=== PATIENT | female | born 1995 | race Caucasian/White ===

== ENCOUNTER → 2016-08-09 | Outpatient (CLI) | payer OTHER ==
--- NOTE | 2016-08-09 08:17 | US ---
EXAMINATION TYPE: US transvaginal DATE OF EXAM: 08/09/2016 COMPARISON: NONE CLINICAL HISTORY: N93.8 Dysfunctional uterine bleeding. Pt states irregular menses, pt being worked u p for PCOS TECHNIQUE: Transvaginal (TV) Date of LMP: 2 weeks ago EXAM MEASUREMENTS: Uterus: 6.2 x 2.8 x 3.8 cm Endometrial Stripe: Right= 0.6 cm, Left= 0.6 cm Right Ovary: 4.2 x 3.2 x 2.8 cm Left Ovary: 3.9 x 4.2 x 2.1 cm 1. Uterus: Anteverted wnl 2. Endometrium: Possible right and left horns, Right= 0.6 cm, Left= 0.6 cm 3. Right Ovary: Multiple "String of Pearls" peripheral follicles suggesting PCOS 4. Left Ovary: Multiple "String of Pearls" peripheral follicles suggesting PCOS 5. Bilateral Adnexa: wnl 6. Posterior cul-de-sac: Small amount of free fluid IMPRESSION: 1. Multiple ovarian cysts seen bilaterally suggesting polycystic ovary disease. Correlate clinically.
== END | disposition home or self-care (01) ==
LOC: RADUSWWP 07:15
PROVIDERS: ATTEND Family Medicine
DX: N83.202 Unspecified ovarian cyst, left side (principal); N83.201 Unspecified ovarian cyst, right side
CPT/HCPCS: 76830

== ENCOUNTER → 2017-04-30 | Outpatient (CLI) | payer BC ==
--- NOTE | 2017-04-30 11:07 | US ---
EXAMINATION TYPE: US thyroid st tissue head/neck DATE OF EXAM: 04/30/2017 COMPARISON: NONE CLINICAL HISTORY: 21-year-old female E01.0 Thyromegaly. Patient states that she occasionally feels li ke she is choking on something. Physician felt thyroid was enlarged. Family history of thyroid CA TECHNIQUE: Multiple sonographic images of the thyroid gland are obtained. FINDINGS: GLAND SIZE: Right Lobe: 4.7 x 1.3 x 1.5 cm Left Lobe: 4.4 x 1.1 x 1.7 cm Isthmus Thickness: 0.3 cm The glandular parenchyma is very mildly heterogeneous. No discrete nodules. Bilateral neck scanned, no evidence of lymphadenopathy. IMPRESSION: The thyroid gland measures at the upper limits of normal in size. Measurements as above. No discrete nodule.
== END | disposition home or self-care (01) ==
LOC: RADUSWWP 10:16
PROVIDERS: ATTEND Family Medicine
DX: E01.0 Iodine-deficiency related diffuse (endemic) goiter (principal)
CPT/HCPCS: 76536

== ENCOUNTER 2017-07-23 05:57 | Inpatient (IN) | payer OTHER, BC ==
[2017-07-23] MEDS ORDERED: OXYTOCIN 10 UNIT/ML 1 ML VIAL IM PRN (06:13)
[2017-07-23] MEDS ORDERED: CARBOPROST TROMETHAMINE 250 MCG/ML 1 ML AMP IM PRN (06:13)
[2017-07-23] MEDS ORDERED: TERBUTALINE 1 MG/ML VIAL SQ PRN (06:13)
[2017-07-23] MEDS ORDERED: LIDOCAINE 1% (PF) 10 MG/ML (30 ML SDV) SQ PRN (06:13)
[2017-07-23] MEDS ORDERED: METHYLERGONOVINE 0.2 MG/ML 1 ML AMP IM PRN (06:13)
[2017-07-23 06:23] LABS: Basophils % (A) 0 %; Eosinophils # (A) 0.3 k/uL (0-0.7); Eosinophils % (A) 3 %; HCT 39.7 % (34.0-46.0); HGB 13.3 gm/dL (11.4-16.0); Lymphocytes # (A) 2.3 k/uL (1.0-4.8); Lymphocytes % (A) 19 %; MCH 28.9 pg (25.0-35.0); MCHC 33.6 g/dL (31.0-37.0); MCV 86.2 fL (80.0-100.0); Mean Platelet Volume 8.5; Monocytes # (A) 0.6 k/uL (0-1.0); Monocytes % (A) 5 %; Neutrophils # (A) 8.9 k/uL (1.3-7.7); Neutrophils % (A) 72 %; Platelet Count 217 k/uL (150-450); RBC 4.61 m/uL (3.80-5.40); RDW 13.1 % (11.5-15.5); WBC 12.3 k/uL (3.8-10.6)
[2017-07-23] MEDS: LACTATED RINGERS 1,000 ML IV SCH ×3 (06:39→22:50)
[2017-07-23] MEDS: OXYTOCIN 20 UNITS/1000 ML NS 1,000 ML IV SCH ×2 (06:39→21:44)
[2017-07-23 07:24] VITALS: BMI 42.1
[2017-07-23 08:09] LABS: ALT 21 U/L (9-52); AST 22 U/L (14-36); Blood Urea Nitrogen 6 mg/dL (7-17); LDH 531 U/L (313-618); Uric Acid 5.5 mg/dL (3.7-7.4)
--- NOTE | 2017-07-23 09:28 | P.HPOB ---
History of Present Illness H&P Date: 07/23/17 This is a 21 -year-old white female 1 para 0 EDC 07/29/2017 at 39 and one sevenths weeks' gestation. Patient presents today for induction with reasonably favorable cervix and mild -induced hypertension. Blood pressure was noted to be slightly elevated in the office yesterday, patient denies headache, visual changes or right upper quadrant pain. Fetus is been active throughout the . She is having mild irregular uterine contractions. Obstetric history is significant for blood type B positive, rubella status immune. Gonorrhea and chlamydia cultures, hepatitis B surface antigen, urine culture, HIV testing, VDRL testing, group B strep cultures all negative. One- hour Glucola 107. Past medical history is significant for polycystic ovarian syndrome. Past surgical history is negative. Current medications metformin 500 mg twice daily and vitamin daily. ALLERGIES none known. Family history significant for thyroid cancer and diabetes. Social history patient is , she has never been a smoker, she denies alcohol or drug use. On exam this is a pleasant white female, she is 5 foot 6 inches 261 pounds, blood pressure on admission 145/87, pulse 106, patient is afebrile. The general physical exam is within normal limits. The extremities reveal trace to +1 edema. The chest is clear in all [place]. Reflexes are normal at +2 bilaterally lower extremities. heart rate is consistent with reactive NST. Cervix is 2 cm dilated, 70% effaced, -2 station, anterior and soft. Artificial amniorrhexis reveals clear fluid. Impression: 39 and one sevenths weeks intrauterine , here for induction for -induced hypertension. Plan: PIH labs will be drawn. Oxytocin per hospital protocol. Close maternal and surveillance. Analgesic options reviewed with the patient. Anticipate normal spontaneous vaginal delivery. Review of Systems Constitutional: Reports as per HPI Past Medical History Past Medical History: No Reported History Additional Past Medical History / Comment(s): Polycystic Ovarian Syndrome History of Any Multi-Drug Resistant Organisms: None Reported Past Surgical History: No Surgical Hx Reported Past Anesthesia/Blood Transfusion Reactions: No Reported Reaction Past Psychological History: No Psychological Hx Reported Smoking Status: Never smoker Past Alcohol Use History: None Reported Past Drug Use History: None Reported - Past Family History Sister(s) Family Medical History: Cancer Medications and Allergies Home Medications Medication Instructions Recorded Confirmed Type metFORMIN HCL [Glucophage] 500 mg PO BID 07/23/17 07/23/17 History Allergies Allergy/AdvReac Type Severity Reaction Status Date / Time No Known Allergies Allergy Verified 07/23/17 06:11 Exam - Vital Signs Vital signs: Vital Signs Temp Pulse Resp BP Pulse Ox 07/23/17 06:06 96.7 F L 106 H 16 145/87 97 Intake and Output 07/22/17 07/23/17 07/23/17 22:59 06:59 14:59 Other: Weight 118.388 kg See dictation under HPI please Results Result Diagrams: 07/23/17 06:15 07/23/17 07:32 Abnormal Lab Results - Last 24 Hours (Table) 07/23/17 07/23/17 Range/Units 06:15 07:32 WBC 12.3 H (3.8-10.6) k/uL Neutrophils # 8.9 H (1.3-7.7) k/uL BUN 6 L (7-17) mg/dL Assessment and Plan Plan: Close maternal and surveillance. Oxytocin per hospital protocol. Anticipate normal spontaneous vaginal delivery. Time with Patient: Less than 30
[2017-07-23] MEDS ORDERED: BUPIVACAINE (PF) 0.25% 30 ML VIAL ONE (11:29)
[2017-07-23] MEDS ORDERED: fentaNYL (PF) 50 MCG/ML 5 ML AMP ONE (11:29)
[2017-07-23] MEDS ORDERED: SODIUM CHLORIDE 0.9% 100 ML BAG ONE (11:29)
[2017-07-23] MEDS ORDERED: ZOLPIDEM 5 MG TAB PO PRN (21:32)
[2017-07-23] MEDS ORDERED: HYDROcodone/APAP 5-325MG 1 EACH TAB PO PRN (21:32)
[2017-07-23] MEDS ORDERED: LANOLIN CREAM 5 GM TUBE TOPICAL PRN (21:32)
[2017-07-23] MEDS ORDERED: HYDROCORTISONE 2.5% RECTAL CREAM 30 GM TUBE RECTAL PRN (21:32)
[2017-07-23] MEDS ORDERED: BENZOCAINE/MENTHOL SPRAY 1 GM/SPRAY AEROSOL TOPICAL PRN (21:32)
[2017-07-23] MEDS ORDERED: diphenhydrAMINE 50 MG CAP PO PRN (21:32)
[2017-07-23] MEDS ORDERED: diphenhydrAMINE 25 MG CAP PO PRN (21:32)
[2017-07-23] MEDS ORDERED: diphenhydrAMINE 50 MG/ML 1 ML VIAL IVP PRN ×2 (21:32)
[2017-07-23] MEDS ORDERED: ACETAMINOPHEN TAB 325 MG TAB PO PRN (21:32)
[2017-07-23] MEDS ORDERED: SIMETHICONE 80 MG CHEWABLE PO PRN (21:32)
[2017-07-23] MEDS ORDERED: WITCH HAZEL 1 EACH MED..PAD TOPICAL PRN (21:32)
--- NOTE | 2017-07-23 21:32 | P.PROBDLV ---
Vaginal Delivery Note - . Vaginal Delivery Note: This is a 21-year-old white female 1 para 0 EDC 07/29/2017 at 39 and one sevenths weeks' gestation. Patient presents for induction for mild -induced hypertension. Blood pressure on admission 145/87, all PIH labs performed and within normal limits. Blood type is B+, rubella status immune, group B strep cultures negative. Please see dictated history and physical for details. Oxytocin was started and titrated per hospital protocol. Epidural was placed per her request. She progressed well through the first stage of labor was judged to be completely dilated at 1949 hrs. She began the second stage of labor at that time. She pushed successfully in the dorsal lithotomy position. Ultimately the perineal body was prepped and draped in usual sterile fashion. A small midline episiotomy was performed, patient had a very tight introitus and along perineal body. This was done under 1% lidocaine. 's head delivered occiput anterior and restituted accordingly. There was a nuchal cord 2 that was reduced on the perineum. The left or anterior shoulder was gently delivered from underneath the pubic symphysis at which time the oropharynx, nasopharynx and external nares were all bulb suctioned on the perineal body. Patient was officially delivered of a liveborn female at 2057 hours. Umbilical cord was doubly clamped and ligated, she was handed to waiting nurses for evaluation where scores of 9 and 9 at one and 5 minutes respectively are given. Placenta delivered spontaneously, it was inspected and noted to be intact with trivascular cord at 2100 hrs. Inspection of the cervix, vagina, perineum, periurethral and perirectal areas revealed no extension. 3-0 Vicryl sutures used to repair the midline second- degree episiotomy. Excellent reapproximation was noted. Fundus is firm and in the midline, symmetric and 18 week size upon completion of delivery. weighed 3460 g or 7 lbs. 10 oz. Patient and her family are allowed to begin the bonding experience in the LDR. BP after delivery 130/70.
[2017-07-23] MEDS: IBUPROFEN 600 MG TAB PO PRN (21:50)
[2017-07-24] MEDS: IBUPROFEN 600 MG TAB PO PRN ×2 (04:14→11:24)
--- NOTE | 2017-07-24 07:37 | P.DS ---
Providers Date of admission: 07/23/17 05:57 Expected date of discharge: 07/24/17 Attending physician: Beata Benson Primary care physician: Claritza Abraham MD Hospital Course: This is a 21-year-old white female 1 para 0 EDC 07/29/2017 at 39 and one sevenths weeks' gestation. Patient presented for induction for mild -induced hypertension, otherwise unremarkable. Blood pressure on admission 145/87, PIH labs all performed and within normal limits, please see my dictated history and physical for details. Oxytocin was started, patient progressed well through labor with the aid of an epidural. She went on to deliver a liveborn female with scores of 9 and 9 at one and 5 minutes respectively. There was a small midline episiotomy performed and easily repaired. Infant weighed 7 lbs. 10 oz. or 3460 g. Estimated blood loss recorded of 300 mL's. Please see my dictated delivery note for details. Blood pressure has normalized after delivery, now 120s to 130s over 70s. Patient is voiding, ambulating, passing flatus without difficulty. Vital signs are stable and she is afebrile. Breasts are not engorged, breast-feeding is going well. is doing well. Patient's fundus is firm, midline, symmetric, 18 week size. Pain is well-controlled. Patient is being discharged home in very good condition. She will follow-up in the office with me in 6 weeks. I have reminded her no intercourse, tampons or douching. She will use [id number] ibuprofen products as needed for pain, 200 mg pills, 3 every 6 hours as needed. She will continue taking her vitamin daily. She will call me with any pain not alleviated by over-the- counter products, with any issues with her breasts or perineal body, with any problems or defecation or urination, or indeed with any concerns or questions. Infant will follow-up with ladies attendant as recommended. Patient Condition at Discharge: Good Plan - Discharge Summary New Discharge Prescriptions: No Action metFORMIN HCL [Glucophage] 500 mg PO BID Discharge Medication List metFORMIN HCL [Glucophage] 500 mg PO BID 07/23/17 [History] Follow up Appointment(s)/Referral(s): Beata Benson MD [STAFF PHYSICIAN] - 6 Weeks Discharge Disposition: HOME SELF-CARE
[2017-07-24 16:10] VITALS: RESP 16
[2017-07-24] MEDS: SENNOSIDES-DOCUSATE SODIUM 1 EACH TAB PO SCH ×2 (17:11→22:42)
[2017-07-24 22:45] VITALS: BP 145/74; PULSE 100; TEMP 99
== END 2017-07-24 21:40 | disposition home or self-care (01) | DRG 775 ==
LOC: 4FBP 05:57
PROVIDERS: ADMIT Obstetrics & Gynecology; ATTEND Obstetrics & Gynecology
PROC: 10E0XZZ Delivery of Products of Conception, External Approach (ICD-10-PCS; principal; 2017-07-23)
PROC: 10907ZC Drainage of Amniotic Fluid, Therapeutic from Products of Conception, Via Natural or Artificial Opening (ICD-10-PCS; principal; 2017-07-23)
PROC: 0W8NXZZ Division of Female Perineum, External Approach (ICD-10-PCS; principal; 2017-07-23)
DX: O13.4 Gestational [pregnancy-induced] hypertension without significant proteinuria, complicating childbirth (principal); Z37.0 Single live birth; O69.81X0 Labor and delivery complicated by cord around neck, without compression, not applicable or unspecified; E28.2 Polycystic ovarian syndrome; O75.89 Other specified complications of labor and delivery; Z3A.39 39 weeks gestation of pregnancy; Z79.84 Long term (current) use of oral hypoglycemic drugs; Z83.3 Family history of diabetes mellitus; Z80.8 Family history of malignant neoplasm of other organs or systems
CPT/HCPCS: 82565; 83615; 84450; 84460; 84520; 84550; 85025; 88307

== ENCOUNTER → 2018-08-19 | Outpatient (CLI) | payer OTHER, BC | LOC: CPPFTMAIN 14:11 | PROVIDERS: ATTEND Family Medicine | DX: R06.00 Dyspnea, unspecified (principal) | CPT/HCPCS: 94060; 94726; 94729 ==

== ENCOUNTER → 2019-12-01 | Outpatient (CLI) | payer BC, OTHER | END | disposition home or self-care (01) | LOC: CPPFTMAIN 10:16 | PROVIDERS: ATTEND Internal Medicine | DX: J45.909 Unspecified asthma, uncomplicated (principal) | CPT/HCPCS: 94060; 94726; 94729 ==

== ENCOUNTER → 2020-06-03 | Outpatient (CLI) | payer BC, OTHER ==
[2020-06-03 17:50] LABS: Hemoglobin A1C 4.8 % (4.0-6.0)
[2020-06-03 18:09] LABS: HCT 40.4 % (37.2-46.3); HGB 12.9 g/dL (12.0-15.0); MCH 28.2 pg (27.0-32.0); MCHC 31.9 g/dL (32.0-37.0); MCV 88.2 fL (80.0-97.0); Mean Platelet Volume 11.6 fL (9.5-12.2); Platelet Count 209 X 10*3/uL (140-440); RBC 4.58 X 10*6/uL (4.10-5.20); RDW 12.6 % (11.5-14.5); WBC 7.14 X 10*3/uL (4.50-10.00)
[2020-06-03 18:47] LABS: Hepatitis B Surface Antigen Non-Reactive (Non-Reactive)
[2020-06-03 19:12] LABS: ALT <8 U/L (8-44); AST 15 U/L (13-35); Uric Acid 5.4 mg/dL (2.9-7.7)
[2020-06-03 22:43] LABS: HIV 2 AB Non-Reactive (Non-Reactive); HIV AB P24 Non-Reactive (Non-Reactive); HIV P24 AG Non-Reactive (Non-Reactive)
== END | disposition home or self-care (01) ==
LOC: LABWHC1 08:00
PROVIDERS: ATTEND Obstetrics & Gynecology
DX: Z34.81 Encounter for supervision of other normal pregnancy, first trimester (principal)
CPT/HCPCS: 36415; 82950; 83036; 84450; 84460; 84550; 85027; 86762; 86780; 86850; 86900; 86901; 87086; 87340; 87390

== ENCOUNTER 2020-12-20 05:53 | Inpatient (IN) | payer OTHER, BC ==
[2020-12-20] MEDS: LACTATED RINGERS 1,000 ML IV SCH ×3 (06:20→13:43)
[2020-12-20] MEDS ORDERED: TERBUTALINE 1 MG/ML VIAL SQ PRN (06:25)
[2020-12-20] MEDS ORDERED: LIDOCAINE 0.5% (PF) 5 MG/ML (50 ML SDV) SQ PRN (06:25)
[2020-12-20] MEDS ORDERED: OXYTOCIN 10 UNIT/ML 1 ML VIAL IM PRN (06:25)
[2020-12-20] MEDS ORDERED: CARBOPROST TROMETHAMINE 250 MCG/ML 1 ML AMP IM PRN (06:25)
[2020-12-20] MEDS ORDERED: METHYLERGONOVINE 0.2 MG/ML 1 ML AMP IM PRN (06:25)
[2020-12-20] MEDS ORDERED: OXYTOCIN 30 UNITS/500 ML NS 30 UNIT in SALINE 1 500ML.BAG IV SCH (06:30)
[2020-12-20 06:32] LABS: Basophils % (A) 0 %; Eosinophils # (A) 0.4 k/uL (0-0.7); Eosinophils % (A) 3 %; HCT 40.8 % (34.0-46.0); HGB 13.7 gm/dL (11.4-16.0); Lymphocytes # (A) 2.2 k/uL (1.0-4.8); Lymphocytes % (A) 19 %; MCH 29.4 pg (25.0-35.0); MCHC 33.5 g/dL (31.0-37.0); MCV 87.7 fL (80.0-100.0); Mean Platelet Volume 10.4; Monocytes # (A) 0.6 k/uL (0-1.0); Monocytes % (A) 5 %; Neutrophils # (A) 8.3 k/uL (1.3-7.7); Neutrophils % (A) 72 %; Platelet Count 171 k/uL (150-450); RBC 4.66 m/uL (3.80-5.40); RDW 13.1 % (11.5-15.5); WBC 11.6 k/uL (3.8-10.6)
--- NOTE | 2020-12-20 06:51 | P.HPOB ---
History of Present Illness H&P Date: 12/20/20 Chief Complaint: Here for elective induction of labor This is a 25-year-old white female 2 para 1001 EDC 12/22/2020 at 39-4/7 weeks' gestation. Patient presents for induction with circumvallate placenta, favorable multiparous cervix, Phillips score of 9. Fetus is been active throughout the . She is having rare mild irregular uterine contractions at this time. Past medical history is significant for asthma, on no meds. Past surgical history is negative. Current medications metformin 500 mg twice daily, vitamin daily, baby aspirin daily. ALLERGIES none known. Family history significant for diabetes and thyroid cancer. Social history patient has never been a smoker, she is single, she is a caregiver professionally. There is no alcohol or drug use. Obstetric history is significant for blood type B+, rubella status immune. VDRL testing, urine culture, hepatitis B surface antigen, HIV testing, 1 hour Glucola, group B strep cultures all negative. Circumvallate placenta noted sonographically, weekly NSTs all reactive. On exam patient is 5 foot 6 inches, 250 pounds, blood pressures 135/78. General physical exam is within normal limits. Cervix is 3 cm dilated, 60% effaced, anterior, soft, -2 station. Artificial amniorrhexis reveals clear fluid. heart rate is consistent with reactive NST. As noted there are mild irregular uterine contractions graphing. Impression: 39-4/7 weeks intrauterine , circumvallate placenta, favorable cervix, here for induction of labor. All signs reassuring. Plan: Oxytocin per hospital protocol. Close maternal and surveillance. Analgesic options reviewed with the patient. Anticipate normal spontaneous vaginal delivery, placental pathology for evaluation. Review of Systems Constitutional: Reports as per HPI Past Medical History Past Medical History: No Reported History Additional Past Medical History / Comment(s): Polycystic Ovarian Syndrome History of Any Multi-Drug Resistant Organisms: None Reported Past Surgical History: No Surgical Hx Reported Past Anesthesia/Blood Transfusion Reactions: No Reported Reaction Past Psychological History: No Psychological Hx Reported Smoking Status: Never smoker Past Alcohol Use History: None Reported Past Drug Use History: None Reported - Past Family History Sister(s) Family Medical History: Cancer Additional Family Medical History / Comment(s): Thyroid cancer Father Family Medical History: Diabetes Mellitus Medications and Allergies Home Medications Medication Instructions Recorded Confirmed Type metFORMIN HCL [Glucophage] 500 mg PO BID 07/23/17 12/20/20 History Pnv No.95/Ferrous Fum/Folic AC 1 tab PO DAILY 12/20/20 12/20/20 History [ Multivitamin Tablet] Allergies Allergy/AdvReac Type Severity Reaction Status Date / Time No Known Allergies Allergy Verified 07/23/17 06:11 Exam Vital Signs Temp Pulse Resp BP Pulse Ox 12/20/20 06:23 97.2 F L 103 H 18 135/78 98 Intake and Output 12/19/20 12/19/20 12/20/20 14:59 22:59 06:59 Other: Weight 113.398 kg See dictation under HPI placed Results Result Diagrams: 12/20/20 06:22 Abnormal Lab Results - Last 24 Hours (Table) 12/20/20 Range/Units 06:22 WBC 11.6 H (3.8-10.6) k/uL Neutrophils # 8.3 H (1.3-7.7) k/uL Assessment and Plan Assessment: 39-4/7 weeks intrauterine , circumvallate placenta, favorable multiparous cervix. Here for elective induction of labor, all signs reassuring. Plan: Continue close maternal and surveillance. Begin oxytocin and manage per hospital protocol. Analgesic options reviewed. Anticipate normal spontaneous vaginal delivery. Time with Patient: Less than 30
[2020-12-20] MEDS ORDERED: ROPIVACAINE 5MG/ML 20ML VIAL ONE (13:49)
[2020-12-20] MEDS ORDERED: fentaNYL (PF) 50 MCG/ML 5 ML AMP ONE (13:49)
[2020-12-20] MEDS ORDERED: SODIUM CHLORIDE 0.9% 100 ML BAG ONE (13:49)
[2020-12-20] MEDS ORDERED: diphenhydrAMINE 25 MG CAP PO PRN (17:53)
[2020-12-20] MEDS ORDERED: diphenhydrAMINE ELIXIR 25 MG/10 ML CUP PO PRN (17:53)
[2020-12-20] MEDS ORDERED: LANOLIN CREAM 5 GM TUBE TOPICAL PRN (17:53)
[2020-12-20] MEDS ORDERED: HYDROCORTISONE 2.5% RECTAL CREAM 30 GM TUBE RECTAL PRN (17:53)
[2020-12-20] MEDS ORDERED: BENZOCAINE/MENTHOL SPRAY 1 GM/SPRAY AEROSOL TOPICAL PRN (17:53)
[2020-12-20] MEDS ORDERED: diphenhydrAMINE 50 MG CAP PO PRN (17:53)
[2020-12-20] MEDS ORDERED: ZOLPIDEM 5 MG TAB PO PRN (17:53)
[2020-12-20] MEDS ORDERED: diphenhydrAMINE 50 MG/ML 1 ML VIAL IVP PRN ×2 (17:53)
[2020-12-20] MEDS ORDERED: SIMETHICONE 80 MG CHEWABLE PO PRN (17:53)
[2020-12-20] MEDS ORDERED: ACETAMINOPHEN TAB 325 MG TAB PO PRN (17:53)
--- NOTE | 2020-12-20 17:53 | P.PROBDLV ---
Vaginal Delivery Note - . Vaginal Delivery Note: This is a 25-year-old female 2 para 1001 EDC 12/22/2020 at 39-4/7 weeks' gestation. Patient presented for induction with favorable multiparous cervix. Fetus is been active throughout the . Her is remarkable for circumvallate placenta, please see dictated history and physical for details. Artificial amniorrhexis revealed clear fluid. Oxytocin was started and titrated per hospital protocol. Epidural was placed per her request. She progressed well through the first stage of labor was judged to be completely dilated at 1710 hrs. She began the second stage of labor at that time. Perineal body was prepped and draped in usual sterile fashion. With excellent maternal expulsive efforts the 's head delivered occiput anterior and restituted accordingly. There was no nuchal cord noted. The left or anterior shoulder was gently delivered from underneath the pubic symphysis at which time the oropharynx, nasopharynx, and external nares were all bulb suctioned. Patient was officially delivered of a liveborn female infant at 1719 hrs. Umbilical cord was doubly clamped and ligated, she was handed to waiting nurses for evaluation where scores of 8 and 9 at one and 5 minutes respectively were given. weighed 7 lbs. 13 oz. or 3535 g. Placenta was delivered spontaneously at 1721 hrs. It was inspected and noted to be intact with trivascular cord. It was sent to pathology for history of sonographic evidence of circumvallate morphology. Uterus is then massaged. Careful inspection of the cervix, vagina, perineum, periurethral, and perirectal areas revealed a small laceration just lateral to the urethra. For better visualization, a red Sood catheter was placed sterilely, and a single [id number] suture of 3-0 Vicryl was placed on the small laceration for good approximation. Total estimated blood loss 300 mL's. All sponge needle and enhancement counts are correct. Patient was allowed to begin the bonding experience in the LDR with her daughter and .
[2020-12-20] MEDS: IBUPROFEN 600 MG TAB PO SCH (18:28)
[2020-12-21] MEDS: IBUPROFEN 600 MG TAB PO SCH ×2 (03:11→10:40)
[2020-12-21] MEDS: SENNOSIDES-DOCUSATE SODIUM 1 EACH TAB PO SCH ×2 (03:21→07:45)
--- NOTE | 2020-12-21 07:38 | P.DS ---
Providers Date of admission: 12/20/20 05:53 Expected date of discharge: 12/21/20 Attending physician: Beata Benson Primary care physician: Stated None Hospital Course: This is a 25-year-old white female 2 para 1001 EDC 12/22/2020 39-4/7 weeks' gestation who presented for induction with circumvallate placenta and favorable multiparous cervix. Group B strep cultures negative, blood type B positive, rubella status immune. Please see dictated history and physical for details. Patient went on to deliver vaginally a liveborn female with scores of 8 and 9 at one and 5 minutes respectively. There was a small first-degree perineal laceration easily repaired. Estimated blood loss 300 mL's. weighed 7 lbs. 13 oz. or 3535 g. Please see dictated delivery note for details. This morning the patient and her daughter are both doing well. Patient is voiding, ambulate in, passing flatus without difficulty. Vital signs are stable and she is afebrile. Fundus is firm and in the midline, symmetric and 18 week size. Breast-feeding is going well. [place] is judged to be in very good condition for discharge home. The patient herself this in excellent condition. Patient will follow-up with me in the office in 6 weeks. I have reminded her no intercourse, tampons or douching. She will use [id number] Advil or Aleve, or Motrin as needed for pain. She will call with any fevers shakes or chills, foul smelling or copious lochia, with the passage of large blood clots, with a pain not alleviated by [id number] products, or indeed with any concerns. We have briefly discussed contraceptive options and we will discuss this further in the office. Assessment: Doing well post day #1 Patient Condition at Discharge: Good Plan - Discharge Summary Discharge Rx Participant: No New Discharge Prescriptions: No Action metFORMIN HCL [Glucophage] 500 mg PO BID Pnv No.95/Ferrous Fum/Folic AC [ Multivitamin Tablet] 1 tab PO DAILY Discharge Medication List metFORMIN HCL [Glucophage] 500 mg PO BID 07/23/17 [History] Pnv No.95/Ferrous Fum/Folic AC [ Multivitamin Tablet] 1 tab PO DAILY 12/20/20 [History] Follow up Appointment(s)/Referral(s): Beata Benson MD [STAFF PHYSICIAN] - 2 Weeks
[2020-12-21 16:24] VITALS: BP 125/72; PULSE 79; RESP 16; TEMP 98.4
== END 2020-12-21 18:05 | disposition home or self-care (01) | DRG 807 ==
LOC: 4FBP 05:53
PROVIDERS: ADMIT Obstetrics & Gynecology; ATTEND Obstetrics & Gynecology
PROC: 0HQ9XZZ Repair Perineum Skin, External Approach (ICD-10-PCS; principal; 2020-12-20)
PROC: 3E0R3BZ Introduction of Anesthetic Agent into Spinal Canal, Percutaneous Approach (ICD-10-PCS; principal; 2020-12-20)
PROC: 10E0XZZ Delivery of Products of Conception, External Approach (ICD-10-PCS; principal; 2020-12-20)
PROC: 00HU33Z Insertion of Infusion Device into Spinal Canal, Percutaneous Approach (ICD-10-PCS; principal; 2020-12-20)
PROC: 3E033VJ Introduction of Other Hormone into Peripheral Vein, Percutaneous Approach (ICD-10-PCS; principal; 2020-12-20)
PROC: 10907ZC Drainage of Amniotic Fluid, Therapeutic from Products of Conception, Via Natural or Artificial Opening (ICD-10-PCS; principal; 2020-12-20)
DX: O43.113 Circumvallate placenta, third trimester (principal); Z37.0 Single live birth; O70.0 First degree perineal laceration during delivery; O71.82 Other specified trauma to perineum and vulva; O99.52 Diseases of the respiratory system complicating childbirth; J45.909 Unspecified asthma, uncomplicated; Z3A.39 39 weeks gestation of pregnancy; E28.2 Polycystic ovarian syndrome; Z79.84 Long term (current) use of oral hypoglycemic drugs; Z79.899 Other long term (current) drug therapy; Z83.3 Family history of diabetes mellitus; Z80.8 Family history of malignant neoplasm of other organs or systems
CPT/HCPCS: 85025; 86850; 86900; 86901; 88307

== ENCOUNTER → 2024-07-17 | Outpatient (CLI) | payer OTHER | END | disposition home or self-care (01) | LOC: LABWHC1 11:11 | PROVIDERS: ATTEND Obstetrics & Gynecology | DX: O20.0 Threatened abortion (principal); Z3A.00 Weeks of gestation of pregnancy not specified | CPT/HCPCS: 36415; 84702 ==

== ENCOUNTER 2024-08-30 13:07 | Emergency (ER) | payer OTHER ==
[2024-08-30 13:31] VITALS: RESP 18
--- NOTE | 2024-08-30 14:01 | ED ---
General Adult HPI - General Chief complaint: Vaginal Bleeding Stated complaint: Bleeding 11 weeks Time Seen by Provider: 08/30/24 13:15 Source: patient, RN notes reviewed Mode of arrival: ambulatory Limitations: no limitations - History of Present Illness Initial comments: 29-year-old female presents emergency department with chief complaint of vaginal bleeding in early . Patient states she is G4, C that she is around [address] Rodriguez and noticed that she had painless vaginal bleeding today. She denies any back pain no cramping no nausea vomiting no fevers chills no associated symptoms. Patient has B+ blood type. - Related Data Home Medications Medication Instructions Recorded Confirmed metFORMIN HCL [Glucophage] 500 mg PO BID 07/23/17 12/20/20 Pnv No.95/Ferrous Fum/Folic AC 1 tab PO DAILY 12/20/20 12/20/20 [ Multivitamin Tablet] Allergies Allergy/AdvReac Type Severity Reaction Status Date / Time No Known Allergies Allergy Verified 08/30/24 13:31 Review of Systems ROS Statement: Those systems with pertinent positive or pertinent negative responses have been documented in the HPI. ROS Other: All systems not noted in ROS Statement are negative. Past Medical History Past Medical History: No Reported History Additional Past Medical History / Comment(s): Polycystic Ovarian Syndrome History of Any Multi-Drug Resistant Organisms: None Reported Past Surgical History: No Surgical Hx Reported Past Anesthesia/Blood Transfusion Reactions: No Reported Reaction Past Psychological History: No Psychological Hx Reported Smoking Status: Never smoker Past Alcohol Use History: None Reported Past Drug Use History: None Reported - Past Family History Sister(s) Family Medical History: Cancer Additional Family Medical History / Comment(s): Thyroid cancer Father Family Medical History: Diabetes Mellitus General Exam Limitations: no limitations General appearance: alert, in no apparent distress Head exam: Present: atraumatic, normocephalic, normal inspection Respiratory exam: Present: normal lung sounds bilaterally. Absent: respiratory distress, wheezes, rales, rhonchi, stridor Cardiovascular Exam: Present: regular rate, normal rhythm, normal heart sounds. Absent: systolic murmur, diastolic murmur, rubs, gallop, clicks GI/Abdominal exam: Present: soft, normal bowel sounds. Absent: distended, tenderness, guarding, rebound, rigid Back exam: Absent: CVA tenderness (R), CVA tenderness (L) Course Vital Signs 08/30/24 13:29 Temperature 99.1 F Pulse Rate 93 Respiratory 18 Rate Blood Pressure 136/80 O2 Sat by Pulse 98 Oximetry Medical Decision Making - Medical Decision Making Was pt. sent in by a medical professional or institution (, ANABELL, WOODWIND REEDS CUTTER, urgent care, hospital, or retirement...) When possible be specific @ -No Did you speak to anyone other than the patient for history (EMS, parent, family, police, friend...)? What history was obtained from this source @ -No Did you review nursing and triage notes (agree or disagree)? Why? @ -I reviewed and agree with nursing and triage notes Were old charts reviewed (outside hosp., previous admission, EMS record, old E KG, old radiological studies, urgent care reports/EKG's, retirement records)? Report findings @ -No old charts were reviewed Differential Diagnosis (chest pain, altered mental status, abdominal pain women, abdominal pain men, vaginal bleeding, weakness, fever, dyspnea, syncope, headache, dizziness, GI bleed, back pain, seizure, CVA, palpatations, mental health, musculoskeletal)? @ -Differential Vaginal Bleeding: Spontaneous , threatened , molar , ectopic , bloody show, incompetent cervix, abruptioplacenta, placenta previa, uterine rupture, dysfunctional uterine bleeding, hemorrhage, uterine fibroids, this is not meant to be an all-inclusive list. EKG interpreted by me (3pts min.). @ -None X-rays interpreted by me (1pt min.). @ -None done CT interpreted by me (1pt min.). @ -None done U/S interpreted by me (1pt. min.). @ -Ultrasound OB showing intrauterine heart rate 129 Limited exam secondary to body habitus. No acute process otherwise. What testing was considered but not performed or refused? (CT, X-rays, U/S, labs)? Why? @ -None What meds were considered but not given or refused? Why? @ -None Did you discuss the management of the patient with other professionals (professionals i.e. , ANABELL, WOODWIND REEDS CUTTER, lab, RT, psych nurse, social service technician, degreasing solution mixer, teacher, planned giving officer, case maker)? Give summary @ -No Was smoking cessation discussed for >3mins.? @ -No Was critical care preformed (if so, how long)? @ -No Were there social determinants of health that impacted care today? How? (Homelessness, low income, unemployed, alcoholism, drug addiction, transportation, low edu. Level, literacy, decrease access to med. care, skilled nursing, rehab)? @ -No Was there de-escalation of care discussed even if they declined (Discuss DNR or withdrawal of care, Hospice)? DNR status @ -No What co-morbidities impacted this encounter? (DM, HTN, Smoking, COPD, CAD, Cancer, CVA, ARF, Chemo, Hep., AIDS, mental health diagnosis, sleep apnea, morbid obesity)? @ -None Was patient admitted / discharged? Hospital course, mention meds given and route, prescriptions, significant lab abnormalities, going to OR and other pertinent info. @ -Discharge patient had painless vaginal bleeding in early she has B+ blood type patient has a intrauterine without complications we discussed possibility of subchorionic bleed that was not identified patient will follow-up with [facility] return parameters cussed. Undiagnosed new problem with uncertain prognosis? @ -No Drug Therapy requiring intensive monitoring for toxicity (Heparin, Nitro, Insu lydia, Cardizem)? @ -No Were any procedures done? @ -No Diagnosis/symptom? @ -Vaginal bleeding in Acute, or Chronic, or Acute on Chronic? @ -Acute Uncomplicated (without systemic symptoms) or Complicated (systemic symptoms)? @ -Uncomplicated Side effects of treatment? @ -No Exacerbation, Progression, or Severe Exacerbation? @ -No Poses a threat to life or bodily function? How? (Chest pain, [place], [place], pneumonia, PE, COPD, DKA, ARF, appy, cholecystitis, CVA, Diverticulitis, Homicidal, Suicidal, threat to staff... and all critical care pts) @ -No Disposition Clinical Impression: Vaginal bleeding in Disposition: HOME SELF-CARE Condition: Stable Instructions (If sedation given, give patient instructions): Subchorionic Hemorrhage (ED) Additional Instructions: Please return to the Emergency Department if symptoms worsen or any other concerns. Is patient prescribed a controlled substance at d/c from ED?: No Referrals: Phan Arnold MD [Primary Care Provider] - 1-2 days Time of Disposition: 14:28
--- NOTE | 2024-08-30 14:20 | US ---
EXAMINATION TYPE: Transabdominal DATE OF EXAM: 08/30/2024 1:58 PM COMPARISON: NONE CLINICAL INDICATION: Female, 29 years old with history of bleeding; pt noticed bright red blood in ur ine today, no pain or cramping Pt has hx of polycystic ovarian syndrome TECHNIQUE: Transabdominal (TA) with grayscale and color Doppler imaging including first trimester pre gnancy. FINDINGS: EXAM MEASUREMENTS: GESTATIONAL AGE / DATING Dates by LMP: 06/09/2024 (11 weeks/5 days) EDC: 03/16/2025 Dates by First Scan: No previous this is first scan Dates by Current Scan for: (11 weeks/5 days) EDC: 03/16/2025 MATERNAL ANATOMY Very limited scan due to pt body habitus & overlying bowel Uterus: 12.5x6.0x10.4cm Right Ovary: 2.4x1.9x2.8cm Left Ovary: 3.5x1.5x1.3cm Post CDS / Adnexa: wnl Presence of free fluid: n/a Presence of corpus luteal cyst: n/a Presence of subchorionic bleed: n/a GESTATION / SURVEY CRL: 5.0cm (11 weeks/5 days) Gestational Sac morphology: Normal Yolk Sac (normal less than 6mm): 0.6cm Cardiac Activity/Heart Rate: 129 bpm Rhythm: Normal IUP: Viable IUP Date of LMP: 06/09/2024 Beta HcG (if available): Not available at this time IMPRESSION: 1. Single live intrauterine with estimate gestational age of 11 weeks 5 days. [facility], , 08/30/2024 2:18 PM
[2024-08-30 14:51] VITALS: BP 113/72; PULSE 82; TEMP 98.5
== END 2024-08-30 14:51 | disposition home or self-care (01) ==
LOC: EC 13:07
DX: O20.9 Hemorrhage in early pregnancy, unspecified (principal); Z3A.11 11 weeks gestation of pregnancy
CPT/HCPCS: 76801; 99284

== ENCOUNTER 2024-09-03 11:58 | Emergency (ER) | payer OTHER ==
[2024-09-03 12:15] VITALS: RESP 20
--- NOTE | 2024-09-03 12:26 | ED ---
Female Urogenital HPI - General Source: patient, RN notes reviewed Mode of arrival: ambulatory Limitations: no limitations <America Contreras - Last Filed: 09/03/24 12:24> <Stephanie Juarez - Last Filed: 09/12/24 00:32> - General Chief complaint: Vaginal Bleeding Stated complaint: Vaginal bleeding(12 weeks preg) Time Seen by Provider: 09/03/24 12:24 - History of Present Illness Initial comments: Quick [id number] female at approximately 12 weeks 2 days gestation presenting for vaginal bleeding. States she began to experience abdominal cramping earlier today and believes she passed products of conception into the toilet prior to arrival. (America Contreras) 29-year-old female G4, who follows with Dr. Rodriguez comes in with vaginal bleeding. Patient is approximately 12 weeks 2 days . She began having abdominal cramping earlier today and started having vaginal bleeding that she states resembles tissue. She is having suprapubic pain. Bleeding has slowed at this time. She not take anything for pain control. No nausea or vomiting. Denies dysuria, hematuria or difficulty voiding. Denies diarrhea, constipation, black or bloody stools. (Stephanie Juarez) - Related Data Home Medications Medication Instructions Recorded Confirmed metFORMIN HCL [Glucophage] 500 mg PO BID 07/23/17 12/20/20 Pnv No.95/Ferrous Fum/Folic AC 1 tab PO DAILY 12/20/20 12/20/20 [ Multivitamin Tablet] Previous Rx's Medication Instructions Recorded HYDROcodone/APAP 5-325MG [[place] 1 tab PO Q6HR PRN 3 Days #12 tab 09/03/24 5-325] Ibuprofen [Motrin] 600 mg PO Q8HR PRN #30 tab 09/03/24 Allergies Allergy/AdvReac Type Severity Reaction Status Date / Time No Known Allergies Allergy Verified 09/03/24 12:12 Review of Systems ROS Other: All systems not noted in ROS Statement are negative. <America Contreras - Last Filed: 09/03/24 12:24> ROS Other: All systems not noted in ROS Statement are negative. <Stephanie Juarez - Last Filed: 09/12/24 00:32> ROS Statement: Those systems with pertinent positive or pertinent negative responses have been documented in the HPI. Past Medical History Past Medical History: No Reported History Additional Past Medical History / Comment(s): Polycystic Ovarian Syndrome History of Any Multi-Drug Resistant Organisms: None Reported Past Surgical History: No Surgical Hx Reported Past Anesthesia/Blood Transfusion Reactions: No Reported Reaction Past Psychological History: No Psychological Hx Reported Smoking Status: Never smoker Past Alcohol Use History: None Reported Past Drug Use History: None Reported - Past Family History Sister(s) Family Medical History: Cancer Additional Family Medical History / Comment(s): Thyroid cancer Father Family Medical History: Diabetes Mellitus <America Contreras - Last Filed: 09/03/24 12:24> General Exam Limitations: no limitations <America Contreras - Last Filed: 09/03/24 12:24> General appearance: alert, in no apparent distress Head exam: Present: atraumatic, normocephalic, normal inspection Eye exam: Present: normal appearance, PERRL, EOMI. Absent: scleral icterus, conjunctival injection, periorbital swelling ENT exam: Present: normal exam, mucous membranes moist Neck exam: Present: normal inspection. Absent: tenderness, meningismus, lymphadenopathy Respiratory exam: Present: normal lung sounds bilaterally. Absent: respiratory distress, wheezes, rales, rhonchi, stridor Cardiovascular Exam: Present: normal rhythm, tachycardia, normal heart sounds. Absent: systolic murmur, diastolic murmur, rubs, gallop, clicks GI/Abdominal exam: Present: soft, normal bowel sounds. Absent: distended, tenderness, guarding, rebound, rigid Extremities exam: Present: normal inspection, full ROM, normal capillary refill. Absent: tenderness, pedal edema, joint swelling, calf tenderness Back exam: Present: normal inspection Neurological exam: Present: alert, oriented X3, CN II-XII intact Psychiatric exam: Present: normal affect, normal mood Skin exam: Present: warm, dry, intact, normal color. Absent: rash <Stephanie Juarez - Last Filed: 09/12/24 00:32> - General Exam Comments Initial Comments: Visual Physical Exam Vital signs reviewed General: Well-appearing, nontoxic, no acute distress. Head: Normocephalic, atraumatic Eyes: PERRLA, EOMI ENT: Airway patent Chest: Nonlabored breathing Skin: No visual rash, normal skin tone Neuro: Alert and oriented 3 Musculoskeletal: No gross abnormalities (America Contreras) Course Vital Signs 09/03/24 09/03/24 09/03/24 12:12 15:14 17:50 Temperature 99.4 F 98.9 F 98.0 F Pulse Rate 120 H 92 82 Respiratory 20 20 20 Rate Blood Pressure 164/88 135/79 118/60 O2 Sat by Pulse 97 97 99 Oximetry Medical Decision Making <BenMalorieAmerica - Last Filed: 09/03/24 12:24> - Lab Data Result diagrams: 09/03/24 12:42 09/03/24 12:42 <Stephanie Juarez Neha - Last Filed: 09/12/24 00:32> - Medical Decision Making I completed the quick note portion of this chart signed America Contreras PA-C (America Contreras) Was pt. sent in by a medical professional or institution ([facility] Mcdonald, DIRECTOR ORGANIZATIONAL, urgent care, hospital, or fdc...) When possible be specific @ -No Did you speak to anyone other than the patient for history (EMS, parent, family, police, friend...)? What history was obtained from this source @ -No Did you review nursing and triage notes (agree or disagree)? Why? @ -I reviewed and agree with nursing and triage notes Were old charts reviewed (outside hosp., previous admission, EMS record, old EKG, old radiological studies, urgent care reports/EKG's, fdc records)? Report findings @ -No old charts were reviewed Differential Diagnosis (chest pain, altered mental status, abdominal pain women, abdominal pain men, vaginal bleeding, weakness, fever, dyspnea, syncope, headache, dizziness, GI bleed, back pain, seizure, CVA, palpatations, mental he alth, musculoskeletal)? @ -Differential Vaginal Bleeding: Spontaneous , threatened , molar , ectopic , bloody show, incompetent cervix, abruptioplacenta, placenta previa, uterine rupture, dysfunctional uterine bleeding, hemorrhage, uterine fibroids, this is not meant to be an all-inclusive list. EKG interpreted by me (3pts min.). @ -Not done X-rays interpreted by me (1pt min.). @ -None done CT interpreted by me (1pt min.). @ -None done U/S interpreted by me (1pt. min.). @ -Yes which demonstrates no acute intrauterine What testing was considered but not performed or refused? (CT, X-rays, U/S, labs)? Why? @ -None What meds were considered but not given or refused? Why? @ -None Did you discuss the management of the patient with other professionals (professionals i.e. , PA, DIRECTOR ORGANIZATIONAL, lab, RT, psych nurse, social media sr strategy manager, conveyor operator, teacher, naval gunfire liaison officer, field nurse case manager)? Give summary @ -Spoke with Dr. Rodriguez as this is for patient Was smoking cessation discussed for >3mins.? @ -No Was critical care preformed (if so, how long)? @ -No Were there social determinants of health that impacted care today? How? (Homelessness, low income, unemployed, alcoholism, drug addiction, transportation, low edu. Level, literacy, decrease access to med. care, detention, rehab)? @ -No Was there de-escalation of care discussed even if they declined (Discuss DNR or withdrawal of care, Hospice)? DNR status @ -No What co-morbidities impacted this encounter? (DM, HTN, Smoking, COPD, CAD, Cancer, CVA, ARF, Chemo, Hep., AIDS, mental health diagnosis, sleep apnea, morbid obesity)? @ -None Was patient admitted / discharged? Hospital course, mention meds given and route, prescriptions, significant lab abnormalities, going to OR and other [facility] [place] info. @ -Upon arrival patient seen and evaluated in bed 32. Thorough history and ph ysical exam was performed. Laboratory studies are conducted. Beta quant is 48,400. Blood type is B+. Ultrasound performed which demonstrates no intrauterine . Patient has had failure and spontaneous . Patient reports that her bleeding is controlled at this time. She is hemodynamically stable. I called and speak with Dr. Rodriguez. She recommends that the patient take Motrin for pain control as this will help her bleeding and pain. I also prescribed the patient [place]. She will alternate these medications. Follow-up with her [facility] next week. She is informed that her beta quant's must trend down to 0 before she can try getting again. Patient was aware of this. If she has any new or worsening symptoms to include worsening bleeding or pain she must return to the emergency department. Patient agreeable to plan she was discharged home in stable condition Undiagnosed new problem with uncertain prognosis? @ -No Drug Therapy requiring intensive monitoring for toxicity (Heparin, Nitro, Insulin, Cardizem)? @ -No Were any procedures done? @ -No Diagnosis/symptom? @ -Acute spontaneous miscarriage Acute, or Chronic, or Acute on Chronic? @ -Acute Uncomplicated (without systemic symptoms) or Complicated (systemic symptoms)? @ -Complicated Side effects of treatment? @ -No Exacerbation, Progression, or Severe Exacerbation? @ -No Poses a threat to life or bodily function? How? (Chest pain, [place], [place], pneumonia, PE, COPD, DKA, ARF, appy, cholecystitis, CVA, Diverticulitis, Homicidal, Suicidal, threat to staff... and all critical care pts) @ -No (Stephanie Juarez) - Lab Data Lab Results 09/03/24 09/03/24 09/03/24 Range/Units 12:29 12:41 12:42 WBC 9.64 (4.50-10.00) 10*3/uL RBC 4.58 (4.10-5.20) 10*6/uL Hgb 13.1 (12.0-15.0) g/dL Hct 38.2 (37.2-46.3) % MCV 83.4 (80.0-97.0) fL MCH 28.6 (27.0-32.0) pg MCHC 34.3 (32.0-37.0) g/dL Plt Count 220 (140-440) 10*3/uL MPV 11.4 (9.5-12.2) fL Immature Gran % (Auto) 0.2 % Neutrophils % 78.9 % Lymphocytes % 13.7 % Monocytes % 5.3 % Eosinophils % 1.6 % Basophils % 0.3 % Immature Gran # 0.02 (0.00-0.04) 10*3/uL Neutrophils # 7.61 (1.80-7.70) 10*3/uL Lymphocytes # 1.32 (0.90-5.00) 10*3/uL Monocytes # 0.51 (0.20-1.00) 10*3/uL Eosinophils # 0.15 (0.04-0.35) 10*3/uL Basophils # 0.03 (0.00-0.10) 10*3/uL Sodium (137-145) mmol/L Potassium (3.5-5.1) mmol/L Chloride (98-107) mmol/L Carbon Dioxide (22-30) mmol/L Anion Gap mmol/L BUN (7-17) mg/dL Creatinine (0.52-1.04) mg/dL Est GFR (CKD-EPI)AfAm (>60 ml/min/1.73 sqM) Est GFR (CKD-EPI)NonAf (>60 ml/min/1.73 sqM) Glucose (74-99) mg/dL Calcium (8.4-10.2) mg/dL Total Bilirubin (0.2-1.3) mg/dL AST (14-36) U/L ALT (4-34) U/L Alkaline Phosphatase (38-126) U/L Total Protein (6.3-8.2) g/dL Albumin (3.5-5.0) g/dL HCG, Quant mIU/mL Urine Color Yellow Urine Appearance Cloudy H (Clear) Urine pH 6.5 (5.0-8.0) Ur Specific [place] 1.018 (1.001-1.035) Urine Protein 2+ H (Negative) Urine Glucose (UA) Negative (Negative) Urine Ketones Negative (Negative) Urine Blood Large H (Negative) Urine Nitrite Negative (Negative) Urine Bilirubin Negative (Negative) Urine Urobilinogen <2.0 (<2.0) mg/dL Ur Leukocyte Esterase Negative (Negative) Urine RBC >182 H (0-5) /hpf Urine WBC 4 (0-5) /hpf Ur Squamous Epith Cells 1 (0-4) /hpf Urine Bacteria Rare H (None) /hpf Hyaline Casts 4 H (0-2) /lpf Urine Mucus Occasional H (None) /hpf Blood Type B Positive Blood Type Recheck B Pos Bld Type Recheck Status No Antibody Screen NEGATIVE Spec Expiration Date 09/06/2024 - 234009/03/24 Range/Units 12:42 WBC (4.50-10.00) 10*3/uL RBC (4.10-5.20) 10*6/uL Hgb (12.0-15.0) g/dL Hct (37.2-46.3) % MCV (80.0-97.0) fL MCH (27.0-32.0) pg MCHC (32.0-37.0) g/dL Plt Count (140-440) 10*3/uL MPV (9.5-12.2) fL Immature Gran % (Auto) % Neutrophils % % Lymphocytes % % Monocytes % % Eosinophils % % Basophils % % Immature Gran # (0.00-0.04) 10*3/uL Neutrophils # (1.80-7.70) 10*3/uL Lymphocytes # (0.90-5.00) 10*3/uL Monocytes # (0.20-1.00) 10*3/uL Eosinophils # (0.04-0.35) 10*3/uL Basophils # (0.00-0.10) 10*3/uL Sodium 135 L (137-145) mmol/L Potassium 3.5 (3.5-5.1) mmol/L Chloride 108 H (98-107) mmol/L Carbon Dioxide 18 L (22-30) mmol/L Anion Gap 9 mmol/L BUN 6 L (7-17) mg/dL Creatinine 0.73 (0.52-1.04) mg/dL Est GFR (CKD-EPI)AfAm >90 (>60 ml/min/1.73 sqM) Est GFR (CKD-EPI)NonAf >90 (>60 ml/min/1.73 sqM) Glucose 148 H (74-99) mg/dL Calcium 9.1 (8.4-10.2) mg/dL Total Bilirubin 0.3 (0.2-1.3) mg/dL AST 18 (14-36) U/L ALT 10 (4-34) U/L Alkaline Phosphatase 69 (38-126) U/L Total Protein 6.7 (6.3-8.2) g/dL Albumin 4.0 (3.5-5.0) g/dL HCG, Quant 15696.7 mIU/mL Urine Color Urine Appearance (Clear) Urine pH (5.0-8.0) Ur Specific [place] (1.001-1.035) Urine Protein (Negative) Urine Glucose (UA) (Negative) Urine Ketones (Negative) Urine Blood (Negative) Urine Nitrite (Negative) Urine Bilirubin (Negative) Urine Urobilinogen (<2.0) mg/dL Ur Leukocyte Esterase (Negative) Urine RBC (0-5) /hpf Urine WBC (0-5) /hpf Ur Squamous Epith Cells (0-4) /hpf Urine Bacteria (None) /hpf Hyaline Casts (0-2) /lpf Urine Mucus (None) /hpf Blood Type Blood Type Recheck Bld Type Recheck Status Antibody Screen Spec Expiration Date Disposition <America Contreras - Last Filed: 09/03/24 12:24> Is patient prescribed a controlled substance at d/c from ED?: Yes When asked, does pt state using other controlled substances?: No If prescribed controlled substance>3 days was MAPS reviewed?: Prescribed <3 Days Time of Disposition: 17:36 <Stephanie Juarez Neha - Last Filed: 09/12/24 00:32> Clinical Impression: Vaginal bleeding in , Incomplete miscarriage Disposition: HOME SELF-CARE Condition: Stable Instructions (If sedation given, give patient instructions): Miscarriage (ED) Additional Instructions: Please alternate taking the Motrin with [place] for pain control. Call the [facility] office in the morning. They must follow your blood counts until your hormone level returns to 0. Return for any new or worsening symptoms Prescriptions: Ibuprofen [Motrin] 600 mg PO Q8HR PRN #30 tab PRN Reason: Pain HYDROcodone/APAP 5-325MG [[place] 5-325] 1 tab PO Q6HR PRN 3 Days #12 tab PRN Reason: Pain Referrals: Phan Arnold MD [Primary Care Provider] - 1-2 days Cammy Chaudhari MD [STAFF PHYSICIAN] - 1-2 days
[2024-09-03 12:44] LABS: Appearance,Urine Cloudy (Clear); Bacteria,Urine Rare /hpf; Bilirubin,Urine Negative (Negative); Blood,Urine Large (Negative); Color,Urine Yellow; Glucose,Urine (UA) Negative (Negative); Hyaline Casts,Urine 4 /lpf (0-2); Ketones,Urine Negative (Negative); Leukocyte Esterase,Urine Negative (Negative); Mucus,Urine Occasional /hpf; Nitrite,Urine Negative (Negative); PH, Urine 6.5 (5.0-8.0); Protein,Urine 2+ (Negative); RBC,Urine >182 /hpf (0-5); Specific Gravity,Urine 1.018 (1.001-1.035); Squamous Epithelial Cell,Urine 1 /hpf (0-4); Urobilinogen,Urine <2.0 mg/dL (<2.0); WBC,Urine 4 /hpf (0-5)
[2024-09-03 13:00] LABS: Basophils # (A) 0.03 10*3/uL (0.00-0.10); Basophils % (A) 0.3 %; Eosinophils # (A) 0.15 10*3/uL (0.04-0.35); Eosinophils % (A) 1.6 %; HCT 38.2 % (37.2-46.3); HGB 13.1 g/dL (12.0-15.0); Lymphocytes # (A) 1.32 10*3/uL (0.90-5.00); Lymphocytes % (A) 13.7 %; MCH 28.6 pg (27.0-32.0); MCHC 34.3 g/dL (32.0-37.0); MCV 83.4 fL (80.0-97.0); Mean Platelet Volume 11.4 fL (9.5-12.2); Monocytes # (A) 0.51 10*3/uL (0.20-1.00); Monocytes % (A) 5.3 %; Neutrophils # (A) 7.61 10*3/uL (1.80-7.70); Neutrophils % (A) 78.9 %; Platelet Count 220 10*3/uL (140-440); RBC 4.58 10*6/uL (4.10-5.20); RDW 12.8 % (11.5-14.5); WBC 9.64 10*3/uL (4.50-10.00)
[2024-09-03 13:06] LABS: ALT 10 U/L (4-34); AST 18 U/L (14-36); African American GFR (CKD) >90 (>60 ml/min/1.73 sqM); Alkaline Phosphatase 69 U/L (38-126); Anion Gap 9 mmol/L; Blood Urea Nitrogen 6 mg/dL (7-17); Calcium 9.1 mg/dL (8.4-10.2); Carbon Dioxide 18 mmol/L (22-30); Chloride 108 mmol/L (98-107); Glucose 148 mg/dL (74-99); Non-African American GFR(CKD) >90 (>60 ml/min/1.73 sqM); Potassium 3.5 mmol/L (3.5-5.1); Sodium 135 mmol/L (137-145); Total Bilirubin 0.3 mg/dL (0.2-1.3); Total Protein 6.7 g/dL (6.3-8.2)
--- NOTE | 2024-09-03 13:52 | US ---
EXAMINATION TYPE: Ultrasound OB <= 14 week fetus DATE OF EXAM: 09/03/2024 1:31 PM COMPARISON: US 4 days ago CLINICAL INDICATION: Female, 29 years old with history of vag bleeding 12.2 weeks; Heavy vaginal blee ding with clots that started today TECHNIQUE: Transabdominal (TA) with grayscale and color Doppler imaging including first trimester pre gnancy. FINDINGS: EXAM MEASUREMENTS: GESTATIONAL AGE / DATING Physician Established: (12 weeks/2 days) EDC: 03/16/2025 Dates by LMP: (12 weeks/2 days) EDC: 03/16/2025 Dates by First Scan: (12 weeks/2 days) EDC: 03/16/2025 Dates by Current Scan for: No IUP seen at this time MATERNAL ANATOMY Uterus: 11.3 x 5.9 x 6.4 cm Right Ovary: 4.4 x 2.9 x 1.7 cm Left Ovary: 2.7 x 1.8 x 2.6 cm Post CDS / Adnexa: wnl Presence of free fluid: No Presence of corpus luteal cyst: Two small cystic areas right ovary 1)- 1.8 x 1.5 cm 2)- 1.9 x 1.8 c m GESTATION / SURVEY And Drying Supervisor Cooking Casing notes: IUP: No IUP seen at this time, endometrial thickness= 2.0 cm, heterogeneous however no increased vas cularity for definitive diagnosis of retained products of conception. Beta HcG (if available): Not available at this time IMPRESSION: 1. Correlate with beta-hCG values as no intrauterine is identified. If the beta hCG is grea ter than 2500, failed and nonvisualized ectopic would be in the differential. If it is less, follow-up for possible too early to visualize intrauterine . 2. Thickened endometrial stripe at 2.0 cm may reflect endometrial hyperplasia. Clinical and ultrasoun d follow-up is recommended. 3. A couple follicles/cysts in the right ovary measuring up to 1.9 cm. [facility], , 09/03/2024 1:50 PM
[2024-09-03] MEDS: HYDROcodone/APAP 5-325MG 1 EACH TAB PO STA (17:22)
[2024-09-03] MEDS: IBUPROFEN 600 MG TAB PO STA (17:23)
[2024-09-03 17:53] VITALS: BP 118/60; PULSE 82; TEMP 98
== END 2024-09-03 18:34 | disposition home or self-care (01) ==
LOC: EC 11:58
DX: O20.9 Hemorrhage in early pregnancy, unspecified (principal); Z3A.12 12 weeks gestation of pregnancy
CPT/HCPCS: 36415; 76801; 80053; 81001; 84702; 85025; 86850; 86900; 86901; 99284

== ENCOUNTER → 2024-09-07 | Outpatient (CLI) | payer OTHER ==
[2024-09-08 03:16] LABS: T4, Free (Free Thyroxine) 1.3 ng/dL (0.80-1.80)
[2024-09-08 04:29] LABS: Cardiolipin Ab IgG Interp Negative (Negative); Cardiolipin Ab IgM Interp Negative (Negative); Cardiolipin IgA Antibody <2.0 U/mL; Cardiolipin IgM Antibody <1.5 U/mL
== END | disposition home or self-care (01) ==
LOC: LABWHC1 15:46
PROVIDERS: ATTEND Obstetrics & Gynecology
DX: O03.9 Complete or unspecified spontaneous abortion without complication (principal); N96 Recurrent pregnancy loss
CPT/HCPCS: 36415; 83036; 84439; 84443; 84702; 86147

== ENCOUNTER → 2024-09-29 | Outpatient (CLI) | payer OTHER | END | disposition home or self-care (01) | LOC: LABWHC1 11:58 | PROVIDERS: ATTEND Obstetrics & Gynecology | DX: O03.9 Complete or unspecified spontaneous abortion without complication (principal) | CPT/HCPCS: 36415; 84702 ==